=== PATIENT | female | born 1985 | race Caucasian/White ===

== ENCOUNTER → 2018-04-08 | Outpatient (CLI) | payer OTHER ==
--- NOTE | 2018-04-08 07:45 | XR ---
EXAMINATION TYPE: XR foot complete LT DATE OF EXAM: 04/08/2018 COMPARISON: NONE HISTORY: Pain and laceration to the foot TECHNIQUE: Three views are submitted. FINDINGS: The osseous structures are intact. There is no acute fracture or dislocation. Joint spaces are p reserved. IMPRESSION: 1. No acute fracture or dislocation. If symptoms persist, follow-up exam in 7 to 10 days could be ob tained.
== END | disposition home or self-care (01) ==
LOC: RADXRMAIN 07:07
PROVIDERS: ATTEND Emergency Medicine
DX: M79.671 Pain in right foot (principal)

== ENCOUNTER → 2018-07-01 | Outpatient (CLI) | payer MEDICAID | END | disposition home or self-care (01) | LOC: LABWHC1 14:55 | PROVIDERS: ATTEND Obstetrics & Gynecology | DX: Z34.80 Encounter for supervision of other normal pregnancy, unspecified trimester (principal) | CPT/HCPCS: 36415; 84702 ==

== ENCOUNTER → 2018-07-04 | Outpatient (CLI) | payer MEDICAID | END | disposition home or self-care (01) | LOC: LABWHC1 07:32 | PROVIDERS: ATTEND Obstetrics & Gynecology | DX: Z34.80 Encounter for supervision of other normal pregnancy, unspecified trimester (principal) | CPT/HCPCS: 36415; 84702 ==

== ENCOUNTER 2018-08-04 07:56 | Emergency (ER) | payer OTHER ==
[2018-08-04 08:00] VITALS: BP 105/56; PULSE 64; RESP 18; TEMP 98.1
--- NOTE | 2018-08-04 08:19 | ED ---
General Adult HPI - General Chief complaint: Neck Pain/Injury Stated complaint: Neck pain Time Seen by Provider: 08/04/18 08:02 Source: patient, RN notes reviewed, old records reviewed Mode of arrival: ambulatory Limitations: no limitations - History of Present Illness Initial comments: 33-year-old female presents for evaluation of pain and stiffness. Patient states that over the past 3 days she said aggressive stiffness in her neck and pain with movement. Patient is currently approximately 8 weeks , she has been taking Tylenol only for her pain. Patient denies specific injury. Denies numbness or weakness in her arms. Denies fever chills, denies significant headache. Patient is otherwise healthy, no chronic medical problems. - Related Data Previous Rx's Medication Instructions Recorded Acetaminophen-Codeine 300-30mg 2 tab PO Q6H PRN #30 tablet 09/15/15 [Tylenol #3] Ibuprofen [Motrin] 600 mg PO Q6HR PRN #30 tab 09/15/15 Allergies Allergy/AdvReac Type Severity Reaction Status Date / Time No Known Allergies Allergy Verified 08/04/18 07:59 Review of Systems ROS Statement: Those systems with pertinent positive or pertinent negative responses have been documented in the HPI. ROS Other: All systems not noted in ROS Statement are negative. Past Medical History Past Medical History: No Reported History Additional Past Medical History / Comment(s): Obstetric history: She had one vaginal delivery 14 years ago and this is her second . History of Any Multi-Drug Resistant Organisms: None Reported Past Surgical History: No Surgical Hx Reported Past Anesthesia/Blood Transfusion Reactions: No Reported Reaction Past Psychological History: No Psychological Hx Reported Smoking Status: Never smoker Past Alcohol Use History: None Reported Past Drug Use History: None Reported - Past Family History Mother Family Medical History: Asthma General Exam Limitations: no limitations General appearance: alert, in no apparent distress Head exam: Present: atraumatic, normocephalic Eye exam: Present: normal appearance, PERRL, EOMI ENT exam: Present: normal exam Neck exam: Present: normal inspection, tenderness (Tenderness in the paraspinal muscles and right trapezius). Absent: meningismus, full ROM (Decreased range of motion secondary to pain,) Respiratory exam: Present: normal lung sounds bilaterally. Absent: respiratory distress, wheezes Cardiovascular Exam: Present: regular rate, normal rhythm GI/Abdominal exam: Present: soft. Absent: distended, tenderness Course Vital Signs 08/04/18 07:57 Temperature 98.1 F Pulse Rate 64 Respiratory 18 Rate Blood Pressure 105/56 O2 Sat by Pulse 99 Oximetry Medical Decision Making - Medical Decision Making 33-year-old female presenting with stiff neck and reproducible neck pain and spasm on exam. Patient is otherwise well-appearing, alert, stable vitals, nonfocal neurologic exam, 5 out of 5 strength in the upper extremities, normal ride operator strength. Normal gait. She will continue Tylenol, she will apply heat, follow up with primary care physician. Disposition Clinical Impression: Strain of neck muscle, Torticollis Disposition: HOME SELF-CARE Condition: Good Instructions: Cervical Strain (ED), Spasmodic Torticollis (ED) Is patient prescribed a controlled substance at d/c from ED?: No Referrals: Shant Zapata MD [Primary Care Provider] - 1-2 days Time of Disposition: 08:19
== END 2018-08-04 08:30 | disposition home or self-care (01) ==
LOC: EC 07:56
DX: O9A.211 Injury, poisoning and certain other consequences of external causes complicating pregnancy, first trimester (principal); S16.1XXA Strain of muscle, fascia and tendon at neck level, initial encounter; M43.6 Torticollis; Z3A.08 8 weeks gestation of pregnancy
CPT/HCPCS: 99283

== ENCOUNTER → 2018-08-05 | Outpatient (CLI) | payer OTHER ==
--- NOTE | 2018-08-05 13:23 | US ---
EXAMINATION TYPE: Transabdominal DATE OF EXAM: 01/18/18 COMPARISON: NONE CLINICAL HISTORY: Z36 confirm dates. EXAM PERFORMED: Transabdominal (TA) EXAM MEASUREMENTS: GESTATIONAL AGE / DATING Physician Established: Not yet established Dates by LMP: (9 weeks/2 days) EDC: 03/08/2019 Dates by First Scan: No previous this is first scan Dates by Current Scan for: (9 weeks/0 days) EDC: 03/10/2019 MATERNAL ANATOMY Uterus: 13.4 x 6.5 x 7.6 cm Right Ovary: 2.7 x 2.3 x 1.9 cm Left Ovary: 2.4 x 1.7 x 1.8 cm Post CDS / Adnexa: wnl Presence of free fluid: No Presence of corpus luteal cyst: No Presence of subchorionic bleed: Yes, to the left of the gestational sac measuring 1.9 x 0.7 x 0.7 cm GESTATION / SURVEY CRL: 3.0 cm (9 weeks/0 days) Yolk Sac (normal less than 6mm): 3 mm Heart Rate: 167 bpm Rhythm: Normal IUP: Live IUP Date of LMP: 06/01/2018 Beta HcG (if available): Not available at this time IMPRESSION: 1. Single live intrauterine with a sonographic calculated age of 9 weeks and 0 days, concor dant with menstrual age. There is an estimated date of delivery of 03/10/2019. 2. Small subchorionic hemorrhage measuring 1.9 cm, less than 25% the gestational sac diameter.
== END | disposition home or self-care (01) ==
LOC: RADUSWWP 12:14
PROVIDERS: ATTEND Obstetrics & Gynecology
DX: O20.9 Hemorrhage in early pregnancy, unspecified (principal); Z3A.09 9 weeks gestation of pregnancy
CPT/HCPCS: 76801

== ENCOUNTER 2019-03-02 05:53 | Inpatient (IN) | payer OTHER ==
[2019-03-02 06:08] VITALS: BMI 40.4
[2019-03-02] MEDS ORDERED: CITRIC ACID-SODIUM CITRATE 15 ML CUP PO ONE (06:14)
[2019-03-02 06:22] LABS: Basophils % (A) 0 %; Eosinophils # (A) 0.1 k/uL (0-0.7); Eosinophils % (A) 2 %; HCT 31.3 % (34.0-46.0); HGB 10.5 gm/dL (11.4-16.0); Lymphocytes # (A) 1.6 k/uL (1.0-4.8); Lymphocytes % (A) 24 %; MCH 28.5 pg (25.0-35.0); MCHC 33.5 g/dL (31.0-37.0); MCV 85.1 fL (80.0-100.0); Mean Platelet Volume 8.5; Monocytes # (A) 0.5 k/uL (0-1.0); Monocytes % (A) 7 %; Neutrophils # (A) 4.2 k/uL (1.3-7.7); Neutrophils % (A) 64 %; Platelet Count 189 k/uL (150-450); RBC 3.68 m/uL (3.80-5.40); RDW 15.1 % (11.5-15.5); WBC 6.5 k/uL (3.8-10.6)
[2019-03-02] MEDS ORDERED: ceFAZolin IN SWFI 2 GM/20 ML SYRINGE IVP ONE (07:33)
[2019-03-02] MEDS: LACTATED RINGERS 1,000 ML IV SCH ×5 (07:41→22:33)
[2019-03-02] MEDS ORDERED: ONDANSETRON 4 MG/2 ML VIAL ONE (08:00)
[2019-03-02] MEDS ORDERED: MORPHINE SULFATE (PF) 0.3 MG/0.3 ML SYR ONE (08:00)
[2019-03-02] MEDS ORDERED: OXYTOCIN 10 UNIT/ML 1 ML VIAL ONE (08:00)
[2019-03-02] MEDS ORDERED: KETAMINE 10 MG/ML 20 ML VIAL ONE (08:00)
[2019-03-02] MEDS ORDERED: KETOROLAC 30 MG/ML 1 ML VIAL ONE (08:00)
[2019-03-02] MEDS ORDERED: NALBUPHINE 10 MG/ML (1 ML AMP) ONE (08:00)
[2019-03-02] MEDS ORDERED: ZOLPIDEM 5 MG TAB PO PRN (08:45)
[2019-03-02] MEDS ORDERED: NALOXONE 0.4 MG/ML 1 ML VIAL IV PRN (08:45)
[2019-03-02] MEDS ORDERED: diphenhydrAMINE 25 MG CAP PO PRN (08:45)
[2019-03-02] MEDS ORDERED: METOCLOPRAMIDE 5 MG/ML 2 ML VIAL IVP PRN (08:45)
[2019-03-02] MEDS ORDERED: diphenhydrAMINE 50 MG CAP PO PRN (08:45)
[2019-03-02] MEDS ORDERED: ONDANSETRON 4 MG/2 ML VIAL IVP PRN (08:45)
[2019-03-02] MEDS ORDERED: ACETAMINOPHEN TAB 325 MG TAB PO PRN (08:45)
[2019-03-02] MEDS ORDERED: HYDROcodone/APAP 7.5-325MG 1 EACH TAB PO PRN (08:45)
[2019-03-02] MEDS ORDERED: diphenhydrAMINE 50 MG/ML 1 ML VIAL IVP PRN ×2 (08:45)
[2019-03-02] MEDS ORDERED: KETOROLAC 30 MG/ML 1 ML VIAL IVP PRN (08:45)
--- NOTE | 2019-03-02 08:48 | P.HPOB ---
History of Present Illness H&P Date: 03/02/19 Chief Complaint: Intrauterine at term: Macrosomia: Family planning Patient is a 34-year-old at 39 weeks gestation who arrives for primary section due to macrosomia. She had an ultrasound last week relating of the baby's weight was greater than 4500 g and while she was not diagnosed with gestational diabetes, she failed her 1 hour Glucola screen and refused to 3R Glucola test. As such we are treating this as potential macrosomic with gestational diabetes. Her course was complicated by said macrosomia and refusing to do her 3 hour Glucola screen. She also was noted to have polyhydramnios in the last few weeks of . She did receive nonstress test twice a week. Pertinent labs could A+ blood type Rh antibody was negative, rubella nonimmune, hepatitis B surface antigen RPR and HIV were all negative. Ultrasound on last week did show vertex presentation. Long discussion had previously been done on advantages and disadvantages of vaginal delivery versus section and she and her have opted for section with tubal ligation for family planning. Risks/benefits/alternatives to this were discussed with patient in detail and all questions were answered for her prior to proceeding to the operating room. Past Medical History Past Medical History: No Reported History Additional Past Medical History / Comment(s): Obstetric history: She had one vaginal delivery 14 years ago and this is her second . History of Any Multi-Drug Resistant Organisms: None Reported Past Surgical History: No Surgical Hx Reported Additional Past Surgical History / Comment(s): LT FALLOPIAN TUBE REMOVED Past Anesthesia/Blood Transfusion Reactions: No Reported Reaction Past Psychological History: No Psychological Hx Reported Smoking Status: Never smoker Past Alcohol Use History: None Reported Past Drug Use History: None Reported - Past Family History Mother Family Medical History: Asthma Medications and Allergies Home Medications Medication Instructions Recorded Confirmed Type No Known Home Medications 03/01/19 03/01/19 History Allergies Allergy/AdvReac Type Severity Reaction Status Date / Time No Known Allergies Allergy Verified 03/01/19 12:40 Exam Osteopathic Statement: *. No significant issues noted on an osteopathic structural exam other than those noted in the History and Physical/Consult. Vital Signs Temp Pulse Resp BP Pulse Ox 03/02/19 06:00 96.8 F L 90 16 127/71 98 Intake and Output 03/01/19 03/02/1903/02/19 22:59 06:59 14:59 Other: # Voids 1 - OBG Physical Exam Breast: both: normal (no masses) Abdomen: bowel sounds normal, no diffuse tenderness, no bruit present, no guarding noted, no hepatomegaly, no splenomegaly, no mass Vulva: both: normal Vagina: normal moisture, no discharge Cervix: no lesion, no discharge Uterus: normal size, normal contour Adnexa: both: normal Anus/Rectum: normal perianal skin, no rectal mass, no hemorrhoids, heme negative Results Result Diagrams: 03/02/19 06:04 Abnormal Lab Results - Last 24 Hours (Table) 03/02/19 Range/Units 06:04 RBC 3.68 L (3.80-5.40) m/uL Hgb 10.5 L (11.4-16.0) gm/dL Hct 31.3 L (34.0-46.0) %
[2019-03-02] MEDS ORDERED: MEASLES-MUMPS-RUBELLA VACC/PF 12,500 UNIT/0.5 ML VIAL SQ ONE (08:53)
--- NOTE | 2019-03-02 08:53 | P.OP ---
Date of Procedure: 03/02/19 Preoperative Diagnosis: Intrauterine with macrosomia and family planning Postoperative Diagnosis: Same, transverse position head on the right side back down Procedure(s) Performed: Primary low transverse section with conversion to breech presentation and tubal occlusion with Filshie clips Anesthesia: spinal Surgeon: Figueroa Perez [employer] Day Worker #1: Amarilis Lopez Estimated Blood Loss (ml): 700 IV fluids (ml): 1,000 Urine output (ml): 250 Pathology: other (Placenta) Condition: stable Disposition: floor Operative Findings: Male scores of 69 and 9 at one and 5 and 10 minutes. Weight was 8 lbs. 9 oz. Baby was noted once we were able to feel the uterus to not be in vertex presentation and needed to be carrier converted to a breech presentation Description of Procedure: Patient was taken to the operating suite where a spinal anesthetic was found to be adequate. She was prepped and draped in the normal sterile fashion and placed in the dorsal supine position with leftward tilt. Initially a Pfannenstiel skin incision was made and this incision was then carried through to the underlying layer of the fascia with a second knife. Fascia was then nicked in the midline and this opening was extended laterally with Flores scissors. Superior and inferior aspect of this incision were then grasped tented up and bluntly and sharply dissected off the rectus muscles. Rectus muscles were then divided in the midline and blunt dissection through the peritoneum was made. This opening was then extended superiorly and inferiorly with good visualization of both bowel bladder. Bladder blade was then placed and the bladder flap identified. It was entered sharply with Metzenbaum scissors and this opening was extended laterally with Metzenbaum scissors. Bladder was then bluntly dissected out of the operative field. Knife was then used to incise uterus lower uterine segment not well-developed and during this we could feel that there was no head in the pelvis raising the question of position. Again ultrasound last week related the position was vertex. Upon entering the uterus hemostat was used to fully develop the incision and it was then extended bluntly I did place my hand inside the uterus this point and felt for position was noted baby's head was on the right side in transverse position the back was down there was umbilical cord coming through the incision and the feet and knees were on the left side. I was unable due to the position to rotate the baby head down therefore the first the right foot than the left foot were brought down into the incision and the baby was brought down into the incision fully. Once baby was passed the buttock and to the shoulders arms needed to be released. The left arm and the down her arm was able to be released with a sweeping motion however the right arm was above the baby's head and as such was not easily reduced. We were able to move the baby's head down into a position where we were finally able to bring the baby's arm across the baby's face and out and then the head was easily delivered. Mouth nares were then bulb suctioned umbilical cord clamped cut usual fashion an nursery personnel that care of the baby. The once this was completed. Placenta was delivered intact and Pitocin was added to the IV. Uterus was then exteriorized cleared of clots and debris and closed in 3 layers with 0 Vicryl suture. Once excellent hemostasis was obtained 3-0 Vicryl was used to reapproximate the bladder flap. A Filshie clip was then placed over the right fallopian tube is a left tube had previously been removed during an ectopic surgery. Blood and debris was then suctioned from the posterior cul-de-sac and the uterus was reinserted into the abdomen. Peritoneal layer was then closed with 0 Vicryl suture. Fascial layer was closed with 0 Vicryl suture. One layer of 3-0 Vicryl was placed in deep subcuticular tissues to reapproximate the skin and close the space. Skin was then closed with 3-0 Vicryl. Sponge, lap, needle counts were all correct 2. Patient was then taken to the recovery room in stable and satisfactory condition.
[2019-03-02] MEDS: FLUCONAZOLE 150 MG TAB PO SCH (10:08)
[2019-03-02] MEDS: SENNOSIDES-DOCUSATE SODIUM 1 EACH TAB PO SCH (22:33)
[2019-03-03] MEDS: LACTATED RINGERS 1,000 ML IV SCH (00:49)
[2019-03-03 07:18] LABS: Basophils % (A) 0 %; Eosinophils # (A) 0.1 k/uL (0-0.7); Eosinophils % (A) 1 %; HCT 29.4 % (34.0-46.0); HGB 9.6 gm/dL (11.4-16.0); Lymphocytes % (A) 14 %; MCHC 32.6 g/dL (31.0-37.0); MCV 86.2 fL (80.0-100.0); Mean Platelet Volume 8.6; Monocytes # (A) 0.5 k/uL (0-1.0); Monocytes % (A) 7 %; Neutrophils # (A) 5.9 k/uL (1.3-7.7); Neutrophils % (A) 77 %; Platelet Count 184 k/uL (150-450); RBC 3.41 m/uL (3.80-5.40); RDW 15.3 % (11.5-15.5); WBC 7.7 k/uL (3.8-10.6)
--- NOTE | 2019-03-03 08:01 | P.PN ---
Progress Note - Text Progress Note Date: 03/03/19 34-year-old female status post section with Duramorph spinal. Patient doing well today with no complications. Mild pruritus overnight improved with Benadryl. No motor sensory deficits ambulating well tolerating diet.
[2019-03-03] MEDS: SENNOSIDES-DOCUSATE SODIUM 1 EACH TAB PO SCH ×2 (09:10→19:59)
[2019-03-03] MEDS: FLUCONAZOLE 150 MG TAB PO SCH (09:10)
--- NOTE | 2019-03-03 10:16 | P.PNOBGPC ---
Subjective - Subjective Principal diagnosis: Postop day 1 Interval history: Doing very well postop day 1. She is involuting, voiding and she is tolerating a diet. Voices no complaints. Patient reports: Reports appetite normal, Reports voiding normally, Reports pain well controlled, Reports ambulating normally Humphreys: doing well Objective - Vital Signs Latest vital signs: Vital Signs Temp Pulse Resp BP Pulse Ox 03/03/19 08:00 97.7 F 89 16 119/71 99 03/03/19 04:00 98.0 F 80 16 108/62 98 03/03/19 00:00 98.0 F 84 16 107/57 97 03/02/19 20:00 97.8 F 90 16 106/60 98 03/02/19 16:00 98.4 F 84 16 106/59 98 03/02/19 12:00 97.6 F 91 16 105/59 98 03/02/19 10:51 98.1 F 96 16 100/59 98 03/02/19 10:21 83 16 97/59 98 Intake and Output 03/02/19 03/03/19 03/03/19 22:59 06:59 14:59 Output Total 900 250 Balance -900 -250 Output: Urine 900 250 Uretheral ([place]) 650 Other: # Voids 1 1 - Exam Lungs: bilateral: normal Chest: Normal S1, Normal S2 Extremities: Present: normal Abdomen: Present: normal appearance, soft. Absent: distention, tenderness Incision: Present: normal, dry, intact Uterus: Present: normal, firm - Labs Labs: Abnormal Lab Results - Last 24 Hours (Table) 03/03/19 Range/Units 06:36 RBC 3.41 L (3.80-5.40) m/uL Hgb 9.6 L (11.4-16.0) gm/dL Hct 29.4 L (34.0-46.0) %
[2019-03-03] MEDS: IBUPROFEN 600 MG TAB PO PRN ×2 (13:03→22:54)
[2019-03-03] MEDS ORDERED: Acetaminophen-Codeine 300-30mg TAB PO PRN (17:09)
[2019-03-03] MEDS: Acetaminophen-Codeine 300-30mg TAB PO PRN (17:46)
[2019-03-04] MEDS: Acetaminophen-Codeine 300-30mg TAB PO PRN (03:20)
[2019-03-04] MEDS: FLUCONAZOLE 150 MG TAB PO SCH (07:46)
[2019-03-04] MEDS: IBUPROFEN 600 MG TAB PO PRN (07:46)
[2019-03-04] MEDS: SENNOSIDES-DOCUSATE SODIUM 1 EACH TAB PO SCH (07:46)
[2019-03-04 09:32] VITALS: RESP 20
[2019-03-04 09:33] VITALS: BP 120/78; PULSE 91; TEMP 98.2
--- NOTE | 2019-03-04 12:55 | P.DS ---
Providers Date of admission: 03/02/19 05:53 Expected date of discharge: 03/04/19 Attending physician: Figueroa Perez Primary care physician: Stated None - Discharge Diagnosis(es) (1) Status post primary low transverse section Current Visit: Yes Status: Acute Hospital Course: Patient presented for primary low transverse and underwent this procedure without complication. Her postoperative course was also a. She'll be discharged home postoperative day #2 in stable condition to follow-up with Dr. Durbin in 1 week. Her incision is clean, dry, intact with stitches and Steri- Strips. There is no erythema or drainage. Her pain is well-controlled and she is ambulating and voiding without difficulty. Tolerating regular diet. Plan - Discharge Summary Discharge Rx Participant: Yes New Discharge Prescriptions: New Ibuprofen [Motrin] 600 mg PO Q6HR PRN #30 tab PRN Reason: Mild Pain Or Fever >= 100.5 Acetaminophen-Codeine 300-30mg [Tylenol w/codeine #3] 2 each PO Q6HR PRN #20 tab PRN Reason: Severe Pain Discharge Medication List Acetaminophen-Codeine 300-30mg [Tylenol w/codeine #3] 2 each PO Q6HR PRN #20 tab 03/04/19 [Rx] Ibuprofen [Motrin] 600 mg PO Q6HR PRN #30 tab 03/04/19 [Rx] Follow up Appointment(s)/Referral(s): Figueroa Perez DO [Doctor of Osteopathic Medicine] - 1 Week Discharge Disposition: HOME SELF-CARE
== END 2019-03-04 11:30 | disposition home or self-care (01) | DRG 785 ==
LOC: 4FBP 05:53
PROVIDERS: ADMIT Obstetrics & Gynecology; ATTEND Obstetrics & Gynecology
PROC: 0UL50CZ Occlusion of Right Fallopian Tube with Extraluminal Device, Open Approach (ICD-10-PCS; 2019-03-02)
PROC: 10S07ZZ Reposition Products of Conception, Via Natural or Artificial Opening (ICD-10-PCS; 2019-03-02)
PROC: 10D00Z1 Extraction of Products of Conception, Low, Open Approach (ICD-10-PCS; principal; 2019-03-02 08:00)
DX: O36.63X0 Maternal care for excessive fetal growth, third trimester, not applicable or unspecified (principal); O40.3XX0 Polyhydramnios, third trimester, not applicable or unspecified; O99.72 Diseases of the skin and subcutaneous tissue complicating childbirth; L29.9 Pruritus, unspecified; Z37.0 Single live birth; Z3A.39 39 weeks gestation of pregnancy; Z82.5 Family history of asthma and other chronic lower respiratory diseases
CPT/HCPCS: 85025; 86850; 86900; 86901; 88307; 90707